=== PATIENT | female | born 1990 ===

== ENCOUNTER 2021-10-28 10:50 | Day surgery (SDC) | payer OTHER ==
[~2021-10-28 10:50] MED LIST: MEGESTROL ACETA40 MG PO
== END 2021-10-28 19:07 | disposition home or self-care (01) ==
LOC: CIR.AMB 10:50
PROVIDERS: ATTEND Specialist
DX: N85.02 Endometrial intraepithelial neoplasia [EIN] (principal); G43.909 Migraine, unspecified, not intractable, without status migrainosus; E66.01 Morbid (severe) obesity due to excess calories; Z20.822 Contact with and (suspected) exposure to COVID-19